=== PATIENT | male | born 1990 | race Caucasian/White ===

== ENCOUNTER 2016-12-07 14:07 | Emergency (ER) | payer SELFPAY ==
--- NOTE | 2016-12-07 15:20 | ED CLINICAL REPORT ---
Clinical Report - Physicians/Mid Levels [facility] [address] [place] [address] 12/07/2016 14:10 Patient: ALMA WHITFIELD Time Seen: 14:32; initial patient contact. Arrived- By private vehicle. Historian- patient. HISTORY OF PRESENT ILLNESS Chief Complaint: ABDOMINAL PAIN. At its maximum, severity described as moderate. When seen in the E.D., it was almost gone. Modifying factors- worsened by walking. Not relieved by anything. This started about 4 days ago. It is described as sharp. No radiation. It is described as located in the left lower quadrant. No nausea, loss of appetite, vomiting or diarrhea. Similar symptoms previously: None. Recent medical care: Not recently seen/assessed. REVIEW OF SYSTEMS No constipation, black stools, hematemesis, difficulty with urination or pain with urination. No urinary frequency, bloody stools, fever or chills. Last bowel movement: recently. All systems otherwise negative, except as recorded above. PAST HISTORY Negative. Problems: no known problems. Surgeries: No history of previous surgery. Additional Surgeries: no known surgeries. Medications: None. Allergies: Penicillin. SOCIAL HISTORY Never smoker. Occasional alcohol use. No drug use. ADDITIONAL NOTES The nursing notes have been reviewed with agreement regarding the chief complaint, PMH and patient medications and allergies. PHYSICAL EXAM Vital Signs: 12/07/2016 14:28 BP: 155/90. HR: 91. RR: 16. O2 saturation: 100%. Temp: 98 F. Pain level now: 310. Have been reviewed. Hypertensive. Heart rate normal. Respiratory rate normal. Temperature normal. Oxygen saturation normal. Appearance: Alert. Oriented X3. No acute distress. Eyes: Eyes normal inspection. ENT: Pharynx normal. CVS: Normal heart rate and rhythm. Heart sounds normal. Respiratory: No respiratory distress. Breath sounds normal. Abdomen: Soft and nontender. Bowel sounds normal. (Mild pain in rectus abdominus muscles in LLQ w/ hyperextension of back.). Back: Normal inspection. No CVA tenderness. Skin: Normal skin color. Neuro: Oriented X 3. No motor deficit. PROGRESS AND PROCEDURES Disposition: Discharged home in good condition. Condition: good. CLINICAL IMPRESSION Abdominal muscle strain INSTRUCTIONS No lifting greater than 5 lbs for 1 weeks (Light duty). Prescription Medications: Diclofenac 50 mg tablets: take 1 tablet orally every 8 hours as needed for pain or stiffness. Dispense thirty (30). No refill. Follow-up: Follow up with your doctor in about two days. Call for an appointment. Screening today revealed the patient's blood pressure to be in the hypertensive range. The patient should follow up with a primary care provider for blood pressure management. (Electronically signed by Red Delgado Dr. 12/07/2016 15:22)
--- NOTE | 2016-12-07 15:20 | ED NURSING NOTES ---
Clinical Report - Nurses [facility] [address] [place] [address] 12/07/2016 14:10 Patient: ALMA WHITFIELD TRIAGE Triage time 1428 PM. Chief Complaint: ABDOMINAL PAIN and (left sided flank pain). Alert. No acute distress. --14:35 Travis Fuentes R.N. 14:28 12/07/16. BP: 155/90. HR: 91. RR: 16. O2 saturation: 100%. Temp: 98 F. Pain level now: 02/03. --14:35 Travis Fuentes R.N. Weight: 86.1 kg stated. Height/Length: 69 inches Per Patient. BMI: 28.1. --14:30 Travis Fuentes R.N. Medications None. --14:34 Travis Fuentes R.N. Allergies Penicillin. --14:34 Travis Fuentes R.N. History Arrived by private vehicle. Historian: patient. Accompanied by family. Onset. (about 4 days ago). ( Patient presents to the ED with symptoms of left lower quadrant abdominal pain x4 days. Patient denies any pain with urination or radiating pain. Denies any abdominal surgeries. Lynn nausea, vomiting, diarrhea, or pain with urination. 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 Patient states that the pain increases significantly with movement. States that he took today and yesterday off work.). 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 SOCIAL HX: Never smoker. Occasional alcohol use. History of drug use. (no). FALL RISK ASSESSMENT: Fall risk assessment completed. No fall risk identified. NUTRITIONAL RISK ASSESSMENT: The nutritional risk assessment revealed no deficiencies. FUNCTIONAL ASSESSMENT: Functional assessment: no impairments noted. LEARNING NEEDS ASSESSMENT: The learning needs assessment revealed no barriers. SKIN INTEGRITY ASSESSMENT: Skin integrity risk assessment completed. No skin integrity risk identified. --14:35 Travis Fuentes R.N. PROBLEMS: no known problems. ADDITIONAL SURGERIES: no known surgeries. PHYSICAL ASSESSMENT Ambulatory to room. GENERAL / NEURO / PSYCH: Alert. Oriented X 4. Appears in no acute distress. HEENT: Mucous membranes are pink. RESPIRATORY: Respirations not labored. Breath sounds within normal limits. CVS: Normal sinus rhythm noted. Capillary refill less than 2 seconds. GI / : Abdominal tenderness in the left lower quadrant. Normal genitalia. Stool color normal. Stool heme negative. (POC test reference range: negative). SKIN: Skin is warm and dry. --14:35 Travis Fuentes R.N. NURSING PROGRESS NOTES Head of bed elevated. The patient is resting quietly. Call light placed in reach. Side rails up x 1. Bed placed in lowest position. Brakes of bed on. --14:35 Travis Fuentes R.N. <<STRICKEN ENTRY-- The patient is calm and resting quietly. Overall patient status is improved- he states feels better. GI / : The patient reports nausea. The patient reports abdominal pain. --14:42 Travis Fuentes R.N. --END STRIKE>> Charted On Wrong Patient --14:45 Travis Fuentes R.N. <<STRICKEN ENTRY-- 14:41 12/07/16. BP: 99/53. HR: 71. RR: 16. O2 saturation: 98%. Pain level now: 03/06. --14:42 Travis Fuentes R.N. --END STRIKE>> Charted on wrong patient. --14:45 Travis Fuentes R.N. DISPOSITION / DISCHARGE Condition at departure: unchanged. The goals identified in the patient's plan of care were met. No learning barriers present. Reviewed medication(s) side effects, precautions, dosing and course information. Prescription(s) given to the patient. Reviewed fever care instructions. The patient was discharged home and accompanied by spouse. He left the Emergency Department ambulatory and via private vehicle. Spouse driving. FALL RISK ASSESSMENT: Fall risk assessment completed. No fall risk identified. --15:36 Travis Fuentes R.N. 15:36 12/07/16. BP: 140/84. HR: 80. RR: 16. O2 saturation: 100% on room air. Temp: 98.6 F (oral). --15:36 Travis Fuentes R.N. Departure time: 1536 PM. --15:36 Travis Fuentes R.N. Locked/Released at 12/07/2016 15:37 by Travis Fuentes R.N.
--- NOTE | 2016-12-07 15:20 | ED NURSING NOTES ---
Clinical Report - Nurses [facility] [address] [place] [address] 12/07/2016 14:10 Patient: ALMA WHITFIELD TRIAGE Triage time 1428 PM. Chief Complaint: ABDOMINAL PAIN and (left sided flank pain). Alert. No acute distress. --14:35 Travis Fuentes R.N. 14:28 12/07/16. BP: 155/90. HR: 91. RR: 16. O2 saturation: 100%. Temp: 98 F. Pain level now: 02/03. --14:35 Travis Fuentes R.N. Weight: 86.1 kg stated. Height/Length: 69 inches Per Patient. BMI: 28.1. --14:30 Travis Fuentes R.N. Medications None. --14:34 Travis Fuentes R.N. Allergies Penicillin. --14:34 Travis Fuentes R.N. History Arrived by private vehicle. Historian: patient. Accompanied by family. Onset. (about 4 days ago). ( Patient presents to the ED with symptoms of left lower quadrant abdominal pain x4 days. Patient denies any pain with urination or radiating pain. Denies any abdominal surgeries. Lynn nausea, vomiting, diarrhea, or pain with urination. 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 Patient states that the pain increases significantly with movement. States that he took today and yesterday off work.). 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 SOCIAL HX: Never smoker. Occasional alcohol use. History of drug use. (no). FALL RISK ASSESSMENT: Fall risk assessment completed. No fall risk identified. NUTRITIONAL RISK ASSESSMENT: The nutritional risk assessment revealed no deficiencies. FUNCTIONAL ASSESSMENT: Functional assessment: no impairments noted. LEARNING NEEDS ASSESSMENT: The learning needs assessment revealed no barriers. SKIN INTEGRITY ASSESSMENT: Skin integrity risk assessment completed. No skin integrity risk identified. --14:35 Travis Fuentes R.N. PROBLEMS: no known problems. ADDITIONAL SURGERIES: no known surgeries. PHYSICAL ASSESSMENT Ambulatory to room. GENERAL / NEURO / PSYCH: Alert. Oriented X 4. Appears in no acute distress. HEENT: Mucous membranes are pink. RESPIRATORY: Respirations not labored. Breath sounds within normal limits. CVS: Normal sinus rhythm noted. Capillary refill less than 2 seconds. GI / : Abdominal tenderness in the left lower quadrant. Normal genitalia. Stool color normal. Stool heme negative. (POC test reference range: negative). SKIN: Skin is warm and dry. --14:35 Travis Fuentes R.N. NURSING PROGRESS NOTES Head of bed elevated. The patient is resting quietly. Call light placed in reach. Side rails up x 1. Bed placed in lowest position. Brakes of bed on. --14:35 Travis Fuentes R.N. <<STRICKEN ENTRY-- The patient is calm and resting quietly. Overall patient status is improved- he states feels better. GI / : The patient reports nausea. The patient reports abdominal pain. --14:42 Travis Fuentes R.N. --END STRIKE>> Charted On Wrong Patient --14:45 Travis Fuentes R.N. <<STRICKEN ENTRY-- 14:41 12/07/16. BP: 99/53. HR: 71. RR: 16. O2 saturation: 98%. Pain level now: 03/06. --14:42 Travis Fuentes R.N. --END STRIKE>> Charted on wrong patient. --14:45 Travis Fuentes R.N. DISPOSITION / DISCHARGE Condition at departure: unchanged. The goals identified in the patient's plan of care were met. No learning barriers present. Reviewed medication(s) side effects, precautions, dosing and course information. Prescription(s) given to the patient. Reviewed fever care instructions. The patient was discharged home and accompanied by spouse. He left the Emergency Department ambulatory and via private vehicle. Spouse driving. FALL RISK ASSESSMENT: Fall risk assessment completed. No fall risk identified. --15:36 Travis Fuentes R.N. 15:36 12/07/16. BP: 140/84. HR: 80. RR: 16. O2 saturation: 100% on room air. Temp: 98.6 F (oral). --15:36 Travis Fuentes R.N. Departure time: 1536 PM. --15:36 Travis Fuentes R.N. Locked/Released at 12/07/2016 15:37 by Travis Fuentes R.N.
--- NOTE | 2016-12-07 15:20 | ED CLINICAL REPORT ---
Clinical Report - Physicians/Mid Levels [facility] [address] [place] [address] 12/07/2016 14:10 Patient: ALMA WHITFIELD Time Seen: 14:32; initial patient contact. Arrived- By private vehicle. Historian- patient. HISTORY OF PRESENT ILLNESS Chief Complaint: ABDOMINAL PAIN. At its maximum, severity described as moderate. When seen in the E.D., it was almost gone. Modifying factors- worsened by walking. Not relieved by anything. This started about 4 days ago. It is described as sharp. No radiation. It is described as located in the left lower quadrant. No nausea, loss of appetite, vomiting or diarrhea. Similar symptoms previously: None. Recent medical care: Not recently seen/assessed. REVIEW OF SYSTEMS No constipation, black stools, hematemesis, difficulty with urination or pain with urination. No urinary frequency, bloody stools, fever or chills. Last bowel movement: recently. All systems otherwise negative, except as recorded above. PAST HISTORY Negative. Problems: no known problems. Surgeries: No history of previous surgery. Additional Surgeries: no known surgeries. Medications: None. Allergies: Penicillin. SOCIAL HISTORY Never smoker. Occasional alcohol use. No drug use. ADDITIONAL NOTES The nursing notes have been reviewed with agreement regarding the chief complaint, PMH and patient medications and allergies. PHYSICAL EXAM Vital Signs: 12/07/2016 14:28 BP: 155/90. HR: 91. RR: 16. O2 saturation: 100%. Temp: 98 F. Pain level now: 310. Have been reviewed. Hypertensive. Heart rate normal. Respiratory rate normal. Temperature normal. Oxygen saturation normal. Appearance: Alert. Oriented X3. No acute distress. Eyes: Eyes normal inspection. ENT: Pharynx normal. CVS: Normal heart rate and rhythm. Heart sounds normal. Respiratory: No respiratory distress. Breath sounds normal. Abdomen: Soft and nontender. Bowel sounds normal. (Mild pain in rectus abdominus muscles in LLQ w/ hyperextension of back.). Back: Normal inspection. No CVA tenderness. Skin: Normal skin color. Neuro: Oriented X 3. No motor deficit. PROGRESS AND PROCEDURES Disposition: Discharged home in good condition. Condition: good. CLINICAL IMPRESSION Abdominal muscle strain INSTRUCTIONS No lifting greater than 5 lbs for 1 weeks (Light duty). Prescription Medications: Diclofenac 50 mg tablets: take 1 tablet orally every 8 hours as needed for pain or stiffness. Dispense thirty (30). No refill. Follow-up: Follow up with your doctor in about two days. Call for an appointment. Screening today revealed the patient's blood pressure to be in the hypertensive range. The patient should follow up with a primary care provider for blood pressure management. (Electronically signed by Red Delgado Dr. 12/07/2016 15:22)
--- NOTE | 2016-12-07 15:37 | ED MED RECONCILIATION SUMMARY ---
Patient: ALMA WHITFIELD Medication Reconciliation Report [facility] VisitID: [id number] [address] [place] [address] 26y, M Registration Date/Time: 12/07/2016 Weight: 86.1 kg Height/Length: 69 in. BMI: 28.1 ALLERGIES: Penicillin The patient's Home Medications are listed below: NONE. The source(s) of the original Home Medication information: Not obtained. The following Medications were given to the patient in the Emergency Department: None. The following Medications were prescribed to the patient: Diclofenac 50 mg tablets: take 1 tablet orally every 8 hours as needed for pain or stiffness. Dispense thirty (30). No refill. -- Red Delgado Dr.
--- NOTE | 2016-12-07 15:37 | ED DISCHARGE INSTRUCTIONS ---
Patient: ALMA WHITFIELD General Instructions [facility] VisitID: [id number] [place] [address] 26y, M Registration Date/Time: 12/07/2016 Abdominal muscle strain INSTRUCTIONS No lifting greater than 5 lbs for 1 weeks (Light duty). Prescription Medications: Diclofenac 50 mg tablets: take 1 tablet orally every 8 hours as needed for pain or stiffness. Dispense thirty (30). No refill. Follow-up: Follow up with your doctor in about two days. Call for an appointment. Screening today revealed the patient's blood pressure to be in the hypertensive range. The patient should follow up with a primary care provider for blood pressure management. ADDITIONAL INFORMATION Muscle Strain, Abdomen A muscle strain is a stretching and tearing of muscle fibers. The abdomen is protected by a thick wall of muscle in the front and sides. These muscles help with twisting and bending forward. Repeated coughing, lifting heavy objects or sudden jerking movements can sometimes cause a muscle strain in the abdomen. This causes pain that is worse when you move. The area may also feel tender or be swollen and bruised. Home Care: Make an ice pack (ice cubes in a plastic bag, wrapped in a towel) and apply over the injured area for 20 minutes every 1-2 hours the first day. You should continue with ice packs 3-4 times a day for the next two days. Continue the use of ice packs for relief of pain and swelling as needed. You may use acetaminophen (Tylenol) or ibuprofen (Motrin, Advil) to control pain, unless another pain medicine was prescribed. [NOTE: If you have liver or kidney disease, a stomach ulcer or GI bleeding, talk with your doctor before using these medicines.] Follow Up with your doctor or this facility if you are not improving within the next five days. Get Prompt Medical Attention if any of the following occur: Pain increases or moves to the right lower abdomen (just below the waistline) Fever of 100.4 F (38 C) or higher, or as directed by your healthcare provider Vomiting Severe abdominal pain that spreads to the back or toward the groin Dizziness, weakness or fainting Blood in the urine Unexpected vaginal bleeding (for women) You have been given the following additional information: Muscle Strain, Abdomen No lifting greater than 5 lbs for 1 weeks (Light duty). (Electronically signed by Red Delgado Dr. 12/07/2016 15:22)
--- NOTE | 2016-12-07 15:37 | ED MAR SUMMARY ---
..... Medication Administration Record [facility] [address] [place], [place] [id number] Patient: ALMA WHITFIELD Visit ID: [id number] 26y, M Weight: 86.1 kg Height/Length: 69 in BMI: 28.1 ALLERGIES: Penicillin
--- NOTE | 2016-12-07 15:37 | ED MAR SUMMARY ---
..... Medication Administration Record [facility] [address] [place] [place], [place] [id number] Patient: ALMA WHITFIELD Visit ID: [id number] 26y, M Weight: 86.1 kg Height/Length: 69 in BMI: 28.1 ALLERGIES: Penicillin
--- NOTE | 2016-12-07 15:37 | ED MED RECONCILIATION SUMMARY ---
Patient: ALMA WHITFIELD Medication Reconciliation Report [facility] VisitID: [id number] [address] [place] [address] 26y, M Registration Date/Time: 12/07/2016 Weight: 86.1 kg Height/Length: 69 in. BMI: 28.1 ALLERGIES: Penicillin The patient's Home Medications are listed below: NONE. The source(s) of the original Home Medication information: Not obtained. The following Medications were given to the patient in the Emergency Department: None. The following Medications were prescribed to the patient: Diclofenac 50 mg tablets: take 1 tablet orally every 8 hours as needed for pain or stiffness. Dispense thirty (30). No refill. -- Red Delgado Dr.
== END 2016-12-07 15:38 | disposition home or self-care (01) ==
LOC: ED SRH 14:07
DX: S39.011A Strain of muscle, fascia and tendon of abdomen, initial encounter (principal); X58.XXXA Exposure to other specified factors, initial encounter; Y93.9 Activity, unspecified; Y92.9 Unspecified place or not applicable; Y99.9 Unspecified external cause status; Z88.0 Allergy status to penicillin